=== PATIENT | female | born 1980 | race Two or more races ===

== ENCOUNTER 2024-12-04 08:05 | Outpatient (CLI) | payer OTHER | END 2024-12-04 08:08 | disposition home or self-care (01) | LOC: SONOGRAMA 08:05 | PROVIDERS: ATTEND Pathology Anatomic Pathology & Clinical Pathology | DX: D44.0 Neoplasm of uncertain behavior of thyroid gland (principal); C73 Malignant neoplasm of thyroid gland ==

== ENCOUNTER 2024-12-25 07:00 | Inpatient (IN) | payer OTHER ==
[~2024-12-25] VITALS: Ht 162.6 cm; Wt 61.7 kg
[2024-12-25 08:33] VITALS: BP 122/76
[2024-12-25 08:39] LABS: BASO % 0.1 % (0.1-1.2); EOS # 0.07 (0.04-0.54); EOS % 0.9 % (0.7-7.0); HEMATOCRIT 35.8 % (34.1-44.9); HEMOGLOBIN 12.1 g/dL (11.2-15.7); LYMPH # 2.64 (1.18-3.74); LYMPH % 35.2 % (19.3-53.1); MEAN CORPUSCULAR HEMOGLOBIN 31.2 pg (25.6-32.2); MONO # 0.41 (0.24-0.82); MONO % 5.5 % (4.7-12.5); NEUT # 4.34 (1.56-6.13); PLATELET COUNT 242 K/uL (163-369); RED BLOOD COUNT 3.88 M/uL (3.93-5.22); RED CELL DISTRIBUTION WIDTH 12.2 % (11.6-14.4)
[2024-12-25 08:40] LABS: PH,URINE 6.5 (5.0-8.0); URINE APPEARANCE Clear; URINE BILIRRUBIN Negative (NEGATIVE); URINE BLOOD Small; URINE COLOR Yellow; URINE GLUCOSE Negative (NEGATIVE); URINE KETONE Negative (NEGATIVE); URINE LEUKOCYTE Small; URINE NITRATE Negative; URINE PROTEIN Negative (NEGATIVE)
[2024-12-25 08:46] LABS: URINE BACTERIA 2083.1 uL (0.0-1933); URINE EPITHELIAL CELLS 26.9 uL (0.0-38.8); URINE RBC 50.3 uL (0.0-20.8); URINE WBC 119.8 uL (0.0-23.2)
[2024-12-25 08:59] LABS: URINE CAST 1.17 uL (0.0-1.40)
[2024-12-25 09:07] LABS: INR 0.96; PARTIAL THROMBOPLASTIN TIME 28.1 SECONDS (22.0-34.0); PROTHROMBIN TIME 10.5 SECONDS (9.0-11.5)
[2024-12-25 09:40] LABS: ALBUMIN 3.7 gm/dL (3.4-5.0); BILIRUBIN TOTAL 0.66 mg/dL (0.3-1.2); CALCIUM 11.3 mg/dL (8.5-10.1); CREATININE SERUM 0.51 mg/dL (0.55-1.02); GFR 129.82; GLOBULINA 3.5 G/DL (2.4-3.5); POTASSIUM 3.56 mEq/L (3.5-5.1); TOTAL PROTEIN 7.2 gm/dL (6.4-8.2)
[2024-12-29] MEDS ORDERED: DEXAMETHASONE SODIUM PHOSPHATE 4 MG/ML VIAL ONE (09:28)
[2024-12-29] MEDS ORDERED: ONDANSETRON HCL 2 MG/ML VIAL IV PRN (09:30)
[2024-12-29] MEDS ORDERED: ENALAPRILAT DIHYDRATE 1.25 MG/ML VIAL IV PRN (09:30)
[2024-12-29] MEDS ORDERED: ACETAMINOPHEN 500 MG GEL..CAP PO SCH (17:00)
[2024-12-29] MEDS ORDERED: LIDOCAINE HCL 60 ML,MAG HYDROX/ALUMINUM HYD/SIMETH 60 ML,DIPHENHYDRAMINE HCL 150 MG MM SCH (17:00)
[2024-12-29] MEDS ORDERED: TRAMADOL HCL 50 MG TABLET PO SCH (17:00)
[2024-12-29] MEDS ORDERED: CYCLOBENZAPRINE HCL 5 MG TABLET PO SCH (17:00)
[2024-12-29] MEDS ORDERED: GABAPENTIN 100 MG CAPSULE PO SCH (17:00)
[2024-12-29 17:28] VITALS: BP 112/74; O2SAT 98
[2024-12-29] MEDS ORDERED: PANTOPRAZOLE SODIUM 40 MG/VIAL VIAL IV PUSH SCH (21:00)
[2024-12-29] MEDS ORDERED: MAG HYDROX/ALUMINUM HYD/SIMETH 30 ML BLIST.PACK PO ONE (23:23)
[2024-12-30 00:56] VITALS: BP 92/54; O2SAT 97
[2024-12-30 08:26] VITALS: BP 96/56; O2SAT 97
[2024-12-30] MEDS ORDERED: CALCIUM CARBONATE/VITAMIN D3 1 TAB TABLET PO NR (09:30)
== END 2024-12-30 11:16 | disposition home or self-care (01) | DRG 627 ==
LOC: O/R 12-29 05:37 → SURH 12-29 07:00
PROVIDERS: ADMIT Surgery; ATTEND Surgery
PROC: 0GTR0ZZ Resection of Parathyroid Gland, Open Approach (ICD-10-PCS; principal; 2024-12-29 17:45)
DX: E21.0 Primary hyperparathyroidism (principal)

== ENCOUNTER 2025-01-04 00:47 | Emergency (ER) | payer OTHER ==
[~2025-01-04] VITALS: Ht 167.6 cm; Wt 61.7 kg
[2025-01-04] MEDS ORDERED: 0.9 % SODIUM CHLORIDE 1,000 ML IV ONE (01:30)
[2025-01-04 02:05] LABS: BASO % 0.1 % (0.1-1.2); EOS # 0.02 (0.04-0.54); EOS % 0.2 % (0.7-7.0); HEMATOCRIT 29.9 % (34.1-44.9); HEMOGLOBIN 10.1 g/dL (11.2-15.7); LYMPH # 1.74 (1.18-3.74); LYMPH % 19.1 % (19.3-53.1); MEAN CORPUSCULAR HEMOGLOBIN 30.7 pg (25.6-32.2); MONO # 0.67 (0.24-0.82); MONO % 7.4 % (4.7-12.5); NEUT # 6.63 (1.56-6.13); PLATELET COUNT 214 K/uL (163-369); RED BLOOD COUNT 3.29 M/uL (3.93-5.22)
[2025-01-04 02:41] LABS: INR 1.02; PARTIAL THROMBOPLASTIN TIME 29.4 SECONDS (22.0-34.0); PROTHROMBIN TIME 11.1 SECONDS (9.0-11.5)
[2025-01-04 03:08] LABS: ALBUMIN 3.1 gm/dL (3.4-5.0); BILIRUBIN TOTAL 0.5 mg/dL (0.3-1.2); CALCIUM 9.2 mg/dL (8.5-10.1); CREATININE SERUM 0.46 mg/dL (0.55-1.02); GFR 146.24; GLOBULINA 3.3 G/DL (2.4-3.5); MAGNESIUM 1.8 mg/dL (1.8-2.4); POTASSIUM 3.9 mEq/L (3.5-5.1); TOTAL PROTEIN 6.4 gm/dL (6.4-8.2)
== END 2025-01-04 05:30 ==
LOC: ER 00:47
PROVIDERS: General Practice
DX: E86.0 Dehydration (principal); R20.2 Paresthesia of skin

== ENCOUNTER 2025-01-09 14:47 | Emergency (ER) | payer OTHER ==
[~2025-01-09] VITALS: Ht 157.5 cm; Wt 61.7 kg
[2025-01-09] MEDS ORDERED: KETOROLAC TROMETHAMINE 30 MG VIAL IM STA (16:45)
[2025-01-09] MEDS ORDERED: KETOROLAC TROMETHAMINE 30 MG VIAL ONE (16:52)
[2025-01-09 17:20] LABS: BASO % 0.2 % (0.1-1.2); HEMATOCRIT 31.6 % (34.1-44.9); HEMOGLOBIN 10.7 g/dL (11.2-15.7); LYMPH # 1.42 (1.18-3.74); LYMPH % 10.8 % (19.3-53.1); MONO % 4.6 % (4.7-12.5); NEUT # 11.04 (1.56-6.13); NEUT % 84.2 % (34.0-71.1); PLATELET COUNT 336 K/uL (163-369); RED BLOOD COUNT 3.45 M/uL (3.93-5.22); RED CELL DISTRIBUTION WIDTH 11.9 % (11.6-14.4)
[2025-01-09 17:46] LABS: ALBUMIN 3.2 gm/dL (3.4-5.0); BILIRUBIN TOTAL 0.59 mg/dL (0.3-1.2); CALCIUM 10.3 mg/dL (8.5-10.1); CREATININE SERUM 0.63 mg/dL (0.55-1.02); GFR 101.73; POTASSIUM 3.37 mEq/L (3.5-5.1); TOTAL PROTEIN 8.2 gm/dL (6.4-8.2)
[2025-01-09 17:49] LABS: ERYTHROCYTE SEDIMENTATION RATE 93 mm/hr (0-20)
[2025-01-09 17:53] LABS: INR 1.1; PROTHROMBIN TIME 11.9 SECONDS (9.0-11.5)
[2025-01-09 19:11] LABS: D DIMER 1.09 MG/L; PARTIAL THROMBOPLASTIN TIME 31.4 SECONDS (22.0-34.0)
[2025-01-09] MEDS ORDERED: INDOMETHACIN50 M1 PO (20:16)
== END 2025-01-09 21:04 | disposition home or self-care (01) ==
LOC: ER 14:49
PROVIDERS: General Practice
DX: M11.262 Other chondrocalcinosis, left knee (principal); M25.462 Effusion, left knee; E21.3 Hyperparathyroidism, unspecified